=== PATIENT | male | born 1980 | race Caucasian/White ===

== ENCOUNTER 2024-10-05 07:19 | Emergency (ER) | payer SELFPAY ==
[~2024-10-05] VITALS: Ht 188 cm; Wt 100.0 kg
[2024-10-05 07:24] VITALS: O2SAT 100
[2024-10-05 07:28] VITALS: BP 117/81; PULSE 94; RESP 16; TEMP 36.8; O2SAT 100
[2024-10-05 07:52] LABS: BASOPHILS % 0.9 % (0.0-2.0); EOSINOPHILS % 1.9 % (0.0-5.0); HEMATOCRIT. 41.7 % (42.0-52.0); HEMOGLOBIN. 14.5 g/dL (14.0-18.0); LYMPHOCYTES % 22.3 % (20.0-50.0); MEAN CORPUSCULAR HEMOGLOBIN 30.7 pg (28.0-32.0); MEAN CORPUSCULAR HGB CONC 34.7 g/dL (31.0-37.0); MEAN CORPUSCULAR VOLUME 88.4 fL (80.0-94.0); MEAN PLATELET VOLUME 7.1 fl (7.4-10.4); MONOCYTES % 10.4 % (2.0-8.0); NEUTROPHILS % 64.5 % (40.0-76.0); PLATELET 239 x1000/uL (130-400); RED BLOOD CELL COUNT 4.72 mill/uL (4.7-6.1); RED CELL DISTRIBUTION WIDTH 12.5 % (11.6-14.6); WHITE BLOOD COUNT 4.2 x1000/uL (4.5-11.0)
[2024-10-05 08:06] LABS: CHLORIDE 100 mEq/L (98-107); POTASSIUM 4.2 mEq/L (3.5-5.1); SODIUM 136 mEq/L (136-145)
[2024-10-05 08:07] LABS: CALCIUM 9.4 mg/dL (8.7-10.4); CARBON DIOXIDE 27 mEq/L (21-32)
[2024-10-05 08:12] LABS: CREATININE 0.8 mg/dL (0.6-1.3); GLUCOSE 80 mg/dL (70-105); UREA NITROGEN BLOOD 11 mg/dL (9-23)
[2024-10-05] MEDS: KETOROLAC 30MG/ML VIAL IV STA (08:24)
[2024-10-05 08:56] LABS: PROTHROMBIN TIME 10.4 sec (9.6-11.0)
[2024-10-05 08:58] LABS: ALANINE AMINOTRANSFERASE 84 IU/L (10-49); ALBUMIN 4.6 g/dL (3.2-4.8); ASPARTATE AMINOTRANSFERASE 61 IU/L (<34); BILIRUBIN DIRECT 0.4 mg/dL (<=3.0); BILIRUBIN TOTAL 1.3 mg/dL (0.1-1.0)
[2024-10-05 08:59] LABS: PROTEIN TOTAL 7.4 g/dL (6.0-8.3)
== END 2024-10-05 09:00 | disposition left against medical advice (07) ==
LOC: ER 07:19
DX: R10.31 Right lower quadrant pain (principal)
CPT/HCPCS: 36415; 80048; 80076; 85025; 99283